=== PATIENT | male | born 1955 | race American Indian/Alaskan Native ===

== ENCOUNTER 2017-06-15 12:33 | Emergency (ER) | payer SELFPAY | END 2017-06-15 14:27 | LOC: ED 12:33 | DX: I10 Essential (primary) hypertension (principal); Z53.21 Procedure and treatment not carried out due to patient leaving prior to being seen by health care provider ==

== ENCOUNTER 2021-04-22 11:25 | Outpatient (CLI) | payer MEDICARE ==
--- NOTE | 2021-04-22 13:21 | XRay Report ---
CHEST 2 VIEWS INDICATION / CLINICAL INFORMATION: CHEST PAIN. COMPARISON: None available. FINDINGS: SUPPORT DEVICES: None. HEART / MEDIASTINUM: No significant abnormality. LUNGS / PLEURA: No significant pulmonary or pleural abnormality. No pneumothorax. ADDITIONAL FINDINGS: Severe scoliosis spine convexity to the right IMPRESSION: 1. No acute findings. Signer Name: Andrea Wahl MD Signed: 04/22/2021 1:16 PM Workstation Name: [id number]
--- NOTE | 2021-04-22 16:13 | XRay Report ---
ABDOMEN 2 VIEWS INDICATION / CLINICAL INFORMATION: Unspecified abdominal pain. COMPARISON: None available. FINDINGS: TUBES / LINES: None. BOWEL GAS PATTERN: No significant abnormality. FREE AIR / EXTRALUMINAL GAS: None seen. ADDITIONAL FINDINGS: There is moderate thoracolumbar scoliosis. CHEST: Visualized chest shows no significant abnormality. IMPRESSION: 1. No significant abnormality to explain the patient's abdominal pain. Signer Name: Jefe Thorpe MD Signed: 04/22/2021 4:09 PM Workstation Name: [id number]
--- NOTE | 2021-04-24 13:10 | Electrocardiograph Report ---
[facility] Test Date: 2021-04-22 Test Time: 12:41:44 Pat Name: EVERT CARLOS Department: Room: Gender: M [employer] Inspector: ANDREA : 1955 Requested By: TEX PPOE Order Number: [id number] Reading MD: Puma Ingram Measurements Intervals [place] Rate: 74 P: 65 AL: 187 QRS: -16 QRSD: 89 T: QT: 400 QTc: 445 Interpretive Statements Sinus rhythm Nonspecific T abnormalities, lateral leads No previous ECG available for comparison Electronically Signed On 04-24-2021 13:10:31 EST by Puma Ingram
== END 2021-04-22 11:26 | disposition home or self-care (01) ==
LOC: CARD 11:25
PROVIDERS: ATTEND Family Medicine
DX: R94.31 Abnormal electrocardiogram [ECG] [EKG] (principal); R10.9 Unspecified abdominal pain; M41.84 Other forms of scoliosis, thoracic region
CPT/HCPCS: 71046; 74019; 93005; 93010